=== PATIENT | female | born 1965 | race Caucasian/White ===

== ENCOUNTER → 2020-02-13 | Outpatient (CLI) | payer BC ==
--- NOTE | 2020-02-14 10:38 | ECHOF ---
Referral Reason:R01.1 Cardiac murmur, unspecified MEASUREMENTS -------- HEIGHT: 165.1 cm WEIGHT: 64.9 kg BP: IVSd: 1.0 cm (0.6 - 1.1) LVIDd: 4.3 cm (3.9 - 5.3) LVPWd: 1.0 cm (0.6 - 1.1) IVSs: 1.7 cm LVIDs: 2.4 cm LVPWs: 1.7 cm LAESV Index (A-L): 19.39 ml/m Ao Diam: 2.9 cm (2.0 - 3.7) AV Cusp: 1.9 cm (1.5 - 2.6) LA Diam: 2.8 cm (2.7 - 3.8) MV EXCURSION: 15.618 mm (> 18.000) MV EF SLOPE: 146 mm/s (70 - 150) EPSS: 2.1 cm MV E Logan: 0.74 m/s MV DecT: 266 ms MV A Logan: 0.76 m/s MV E/A Ratio: 0.98 RAP: 5.00 mmHg RVSP: 25.72 mmHg FINDINGS -------- Sinus rhythm. This was a technically good study. The left ventricular size is normal. There is mild concentric left ventricular hypertrophy. Overa ll left ventricular systolic function is normal with, an EF between 55 - 60 %. The diastolic fillin g pattern is normal for the age of the patient 7.42. The right ventricle is normal in size. Normal LA size by volume 22+/-6 ml/m2. The right atrial size is normal. The aortic valve is trileaflet, and appears structurally normal. No aortic stenosis or regurgitation. The mitral valve is normal. There is trace mitral regurgitation. The tricuspid valve appears structurally normal. Trace tricuspid regurgitation present. Right franchesca tricular systolic pressure is normal at < 35 mmHg. There is no pulmonic regurgitation present. The aortic root size is normal. Normal inferior vena cava with normal inspiratory collapse consistent with estimated right atrial pre ssure of 5 mmHg. There is no pericardial effusion. CONCLUSIONS -------- 1. Sinus rhythm. 2. The left ventricular size is normal. 3. There is mild concentric left ventricular hypertrophy. 4. Overall left ventricular systolic function is normal with, an EF between 55 - 60 %. 5. The diastolic filling pattern is normal for the age of the patient 7.42 6. Normal LA size by volume 22+/-6 ml/m2. 7. The aortic valve is trileaflet, and appears structurally normal. No aortic stenosis or regurgitati on. 8. There is trace mitral regurgitation. 9. Trace tricuspid regurgitation present. 10. Right ventricular systolic pressure is normal at < 35 mmHg. 11. There is no pulmonic regurgitation present. 12. Normal inferior vena cava with normal inspiratory collapse consistent with estimated right atrial pressure of 5 mmHg. 13. There is no pericardial effusion. ACIDIZER HELPER: Sameera Abdullahi RDCS
== END | disposition home or self-care (01) ==
LOC: RADECHMAIN 14:08
PROVIDERS: ATTEND Family Medicine
DX: I51.7 Cardiomegaly (principal)
CPT/HCPCS: 93306

== ENCOUNTER → 2020-07-21 | Outpatient (CLI) | payer BC ==
--- NOTE | 2020-07-22 07:29 | CT ---
EXAMINATION TYPE: CT abdomen w con DATE OF EXAM: 07/21/2020 HISTORY: LUQ pain and distention. CT DLP: 436.9mGycm Automated Exposure Control for Dose Reduction was Utilized. CONTRAST: CT scan of the abdomen is performed with oral and with IV Contrast, patient injected with 100 mL of I sovue 300. COMPARISON: None. FINDINGS: LUNG BASES: Mild left basilar linear scarring and/or atelectasis. LIVER/GB: Cholecystectomy clips. PANCREAS: No significant abnormality is seen. SPLEEN: No significant abnormality is seen. ADRENALS: No significant abnormality is seen. KIDNEYS: Subcentimeter low dense lesion medially upper pole left kidney series 5 image 22 too small t o further characterize. No hydronephrosis or concerning solid or cystic renal mass in either kidney. BOWEL: Oral contrast does not reach the third portion of duodenum making evaluation of wall suboptima l.. Mildly to moderately distended stomach with contrast and debris. No suspicious dilatation of the duodenal sweep. Incidental normal-appearing appendix from cecum in the right upper pelvis. No suspici ous small or large bowel dilatation. Somewhat redundant sigmoid colon. UTERUS/ADNEXA: Partial visualization of the anteverted uterine fundus LYMPH NODES: No greater than 1cm abdominal or pelvic lymph nodes are appreciated. OSSEOUS STRUCTURES: Levoconvex scoliosis centered at L2 level. Exaggerated lumbar lordosis on sagitta l images. Moderate to severe disc space narrowing with spurring right L1-L2 and L2-L3 levels. OTHER: Mild calcification of aorta and branch vessels. IMPRESSION: 1. Possible gastroparesis, correlate clinically. Consider nuclear medicine gastric emptying evaluatio n. Otherwise no acute finding identified.
== END | disposition home or self-care (01) ==
LOC: RADCTMAIN 17:20
PROVIDERS: ATTEND Family Medicine
DX: R10.12 Left upper quadrant pain (principal); Z91.048 Other nonmedicinal substance allergy status
CPT/HCPCS: 74160; Q9967

== ENCOUNTER → 2020-07-30 | Outpatient (CLI) | payer BC ==
--- NOTE | 2020-07-30 12:28 | NM ---
EXAMINATION TYPE: NM gastric emptying static DATE OF EXAM: 07/30/2020 COMPARISON: NONE HISTORY: Gastroparesis Following administration of 1.7 mCi Tc 99m Sulfur Colloid with 4 oz liquid eggs, 2 slices of toast, a nd ice water, projection images of the abdomen were obtained 10 minutes post ingestion. Patient Emptying Values 1 Hour 36 % 2 Hours 53 % 3 Hours 73 % 4 Hours 96 % Gastroesophageal reflux: None IMPRESSION: Gastric emptying: Normal. Gastroesophageal reflux: None. Gastric emptying normal percentage values: 30 minutes: <70% of retention (> 30% emptying) suggests abnormally fast emptying. 60 minutes: <90% retention (>10% emptying) is normal; less than 30% retention (>70% emptying) suggest s abnormally rapid emptying. 90 minutes: <65% retention (> 35% emptying) is normal. 120 minutes: <60% retention (> 40% emptying) is normal. 180 minutes: <30% retention (> 70% emptying) is normal. Gastric emptying T-1/2: Solid: The normal range is 60-105 minutes Liquid only: Normal range is 10-45 minutes. Liquid only-children: At 60 minutes, normal range is 44-58 % . Liquid only-infants: At 60 minutes, normal range is 32-64 %. Additional references: Gastric Emptying Scintigraphy [email or web address]://[email or web address]
== END | disposition home or self-care (01) ==
LOC: RADNMMAIN 06:29
PROVIDERS: ATTEND Family Medicine
DX: K31.84 Gastroparesis (principal)
CPT/HCPCS: 78264; A9541

== ENCOUNTER → 2021-09-08 | Outpatient (CLI) | payer BC ==
--- NOTE | 2021-09-09 11:19 | MM ---
Reason for exam: screening (asymptomatic). Last mammogram was performed 5 years and 11 months ago. History: Patient is postmenopausal. Took hormonal contraceptives for 2 years. Physical Findings: A clinical breast exam by your physician is recommended on an annual basis and results should be correlated with mammographic findings. MG Screening Mammo w CAD Bilateral CC and MLO view(s) were taken. Prior study comparison: October 15, 2015, mammogram, performed at [facility]. October 09, 2014, mammogram, performed at [facility]. The breast tissue is heterogeneously dense. This may lower the sensitivity of mammography. There are benign appearing round calcifications bilaterally. There is no discrete abnormality. ASSESSMENT: Benign, BI-RAD 2 RECOMMENDATION: Routine screening mammogram of both breasts in 1 year.
== END | disposition home or self-care (01) ==
LOC: RADMAMWWP 07:28
PROVIDERS: ATTEND Family Medicine
DX: Z12.39 Encounter for other screening for malignant neoplasm of breast (principal)
CPT/HCPCS: 77067

== ENCOUNTER → 2021-09-20 | Outpatient (CLI) | payer BC ==
[2021-09-20 14:49] LABS: Basophils # (A) 0.03 X 10*3/uL (0.00-0.10); Basophils % (A) 0.4 %; Eosinophils % (A) 4.1 %; HCT 40.9 % (37.2-46.3); HGB 13.3 g/dL (12.0-15.0); Lymphocytes # (A) 1.75 X 10*3/uL (0.90-5.00); Lymphocytes % (A) 23.7 %; MCH 29.5 pg (27.0-32.0); MCHC 32.5 g/dL (32.0-37.0); MCV 90.7 fL (80.0-97.0); Mean Platelet Volume 10.4 fL (9.5-12.2); Monocytes # (A) 0.55 X 10*3/uL (0.20-1.00); Monocytes % (A) 7.5 %; Neutrophils % (A) 63.8 %; Platelet Count 361 X 10*3/uL (140-440); RBC 4.51 X 10*6/uL (4.10-5.20); RDW 11.9 % (11.5-14.5); WBC 7.37 X 10*3/uL (4.50-10.00)
[2021-09-20 15:58] LABS: African American GFR (CKD) 111.5 (60.0-200.0); Albumin 4.3 g/dL (3.8-4.9); Albumin/Globulin Ratio 1.65 (1.60-3.17); Anion Gap 14.3 mmol/L (4.00-12.00); Blood Urea Nitrogen 15.4 mg/dL (9.0-27.0); Calcium 9.8 mg/dL (8.7-10.3); Carbon Dioxide 21.7 mmol/L (21.6-31.8); Chol/HDL Ratio 3.9 Ratio; Globulin 2.6 g/dL (1.6-3.3); HDL Cholesterol 44.9 mg/dL (40.00-60.00); LDL Cholesterol,Calculated 114.4 mg/dL (0.0-131.0); Non-African American GFR(CKD) 96.2 (60.0-200.0); Potassium 4.7 mmol/L (3.5-5.5); Total Bilirubin 0.4 mg/dL (0.30-1.20); Total Protein 6.9 g/dL (6.2-8.2); Triglycerides 78.5 mg/dL (0.00-149.00); VLDL Calculation 15.7 mg/dL (5.00-40.00)
== END | disposition home or self-care (01) ==
LOC: LABWHC1 07:08
PROVIDERS: ATTEND Family Medicine
DX: Z00.00 Encounter for general adult medical examination without abnormal findings (principal)
CPT/HCPCS: 36415; 80053; 80061; 85025

== ENCOUNTER → 2021-10-29 | Outpatient (CLI) | payer BC ==
[2021-10-29 17:31] LABS: Basophils # (A) 0.01 X 10*3/uL (0.00-0.10); Basophils % (A) 0.2 %; Eosinophils # (A) 0.13 X 10*3/uL (0.04-0.35); HCT 39.3 % (37.2-46.3); HGB 12.6 g/dL (12.0-15.0); Lymphocytes # (A) 1.81 X 10*3/uL (0.90-5.00); Lymphocytes % (A) 27.6 %; MCH 29.9 pg (27.0-32.0); MCHC 32.1 g/dL (32.0-37.0); MCV 93.1 fL (80.0-97.0); Mean Platelet Volume 10.7 fL (9.5-12.2); Monocytes % (A) 9.1 %; Neutrophils # (A) 3.98 X 10*3/uL (1.80-7.70); Neutrophils % (A) 60.6 %; Platelet Count 260 X 10*3/uL (140-440); RBC 4.22 X 10*6/uL (4.10-5.20); RDW 13.3 % (11.5-14.5); WBC 6.56 X 10*3/uL (4.50-10.00)
[2021-10-29 18:12] LABS: ALT 31 U/L (8-44); AST 20 U/L (13-35); African American GFR (CKD) 111.5 (60.0-200.0); Albumin 4.2 g/dL (3.8-4.9); Alkaline Phosphatase 77 U/L (41-126); BUN/Creat Ratio 15.29 Ratio (12.00-20.00); Blood Urea Nitrogen 10.7 mg/dL (9.0-27.0); Calcium 9.3 mg/dL (8.7-10.3); Carbon Dioxide 23.6 mmol/L (20.0-27.5); Chloride 106 mmol/L (96-109); Glucose 77 mg/dL (70-110); Non-African American GFR(CKD) 96.2 (60.0-200.0); Potassium 3.9 mmol/L (3.5-5.5); Sodium 142 mmol/L (135-145); Total Protein 6.2 g/dL (6.2-8.2)
[2021-11-01 05:27] LABS: Chol/HDL Ratio 3.88 Ratio; LDL Cholesterol,Calculated 135.2 mg/dL (0.0-131.0)
== END | disposition home or self-care (01) ==
LOC: LABWHC1 09:38
PROVIDERS: ATTEND Internal Medicine Rheumatology
DX: Z51.81 Encounter for therapeutic drug level monitoring (principal); M05.9 Rheumatoid arthritis with rheumatoid factor, unspecified
CPT/HCPCS: 36415; 80053; 80061; 84443; 85025

== ENCOUNTER → 2022-10-11 | Outpatient (CLI) | payer BC | END | disposition home or self-care (01) | LOC: LABWHC1 07:08 | PROVIDERS: ATTEND Family Medicine | DX: Z51.81 Encounter for therapeutic drug level monitoring (principal); M05.9 Rheumatoid arthritis with rheumatoid factor, unspecified | CPT/HCPCS: 36415; 86480 ==

== ENCOUNTER → 2023-06-11 | Outpatient (CLI) | payer BC ==
--- NOTE | 2023-06-11 08:16 | MM ---
Reason for Exam: Screening (asymptomatic). Last mammogram was performed 1 year(s) and 9 month(s) ago. Patient History: Menarche at age 10. First Full-Term at age 23. Postmenopausal. Patient used Hormonal Contraceptives for 2 years. Paternal aunt had breast cancer at or over age 50. Paternal aunt had breast cancer at or over age 50. Risk Values: Jen 5 year model risk: 1.4%. NCI Lifetime model risk: 7.4%. Prior Study Comparison: 10/09/2014 Screening Mammogram, [facility]. 10/15/2015 Screening Mammogram, [facility]. 09/08/2021 Bilateral Screening Mammogram, [facility]. Tissue Density: The breast tissue is heterogeneously dense. This may lower the sensitivity of mammography. Findings: Analyzed By CAD. There is no suspicious group of microcalcifications or new suspicious mass in either breast. Overall Assessment: Benign, BI-RAD 2 Management: Screening Mammogram of both breasts in 1 year. . Patient should continue monthly self-breast exams. A clinical breast exam by your physician is recommended on an annual basis. This exam should not preclude additional follow-up of suspicious palpable abnormalities. Note on Jen scores and lifetime risk: 1. A Jen score greater than 3% is considered moderate risk. If this is the case, consider specialist referral to assess eligibility for a risk reducing agent. 2. If overall lifetime risk for the development of breast cancer is 20% or higher, the patient may qualify for future screening with alternating mammogram and breast MRI. Electronically signed and approved by: Carlos Wills M.D. Radiologis
== END | disposition home or self-care (01) ==
LOC: RADMAMWWP 06:46
PROVIDERS: ATTEND Family Medicine
DX: Z12.31 Encounter for screening mammogram for malignant neoplasm of breast (principal); Z78.0 Asymptomatic menopausal state; Z80.3 Family history of malignant neoplasm of breast
CPT/HCPCS: 77067

== ENCOUNTER → 2024-10-08 | Outpatient (CLI) | payer BC ==
--- NOTE | 2024-10-12 22:18 | BD ---
EXAMINATION TYPE: Axial Bone Density DATE OF EXAM: 10/08/2024 CLINICAL HISTORY: 59 years old Female. ICD-10 CODE: Z78.0 ASYMPTOMATIC MENOPAUSAL STATE , Additional History: Height: 63.5 Weight: 150 FRAX RISK QUESTIONS: Family History (Parent hip fracture): no History of Fracture in Adulthood: no Secondary Osteoporosis: no Rheumatoid Arthritis: yes RISK FACTORS HISTORY OF: Surgery to Spine/Hip(right/left)/Wrist (right/left): no MEDICATIONS: Thyroid Medications: no Osteoporosis Medications: no EXAM MEASUREMENTS: Bone mineral densitometry was performed using the [employer] System. Bone mineral density as measured about the Lumbar spine is: ----- L1-L4(G/cm2): 1.020 T Score Values are as follows: ----- L1: -2.2 ----- L2: -0.1 ----- L3: -1.3 ----- L4: -1.8 ----- L1-L4: -1.3 Z Score Values are as follows: ----- L1: -1.1 ----- L2: 1.0 ----- L3: -0.1 ----- L4: -0.7 ----- L1-L4: -0.2 Bone mineral density baseline Bone mineral density about the R hip (g/cm2): 0.769 Bone mineral density about the L hip (g/cm2): 0.675 T Score values are as follows: -----R Neck: -2.3 -----L Neck: -3.0 -----R Total: -1.9 -----L Total: -2.6 Z Score values are as follows: -----R Neck: -1.1 -----L Neck: -1.8 -----R Total: -1.0 -----L Total: -1.8 Bone mineral density baseline FRAX%s: The graph provided illustrates a 14.5% chance for a major osteoporotic fx and a 3.9% chance f or the hips probability for fx in 10 years time. IMPRESSION: Osteoporosis (T Score less than -2.5). There is increased fracture risk and therapy is usually indicated based on age. Re-Screen 1-2 years. NOTE: T-SCORE=SD OF THE YOUNG ADULT MEAN. [facility], , 10/12/2024 10:16 PM
== END | disposition home or self-care (01) ==
LOC: RADBDWWP 16:25
PROVIDERS: ATTEND Family Medicine
DX: M81.0 Age-related osteoporosis without current pathological fracture (principal); Z78.0 Asymptomatic menopausal state
CPT/HCPCS: 77080

== ENCOUNTER → 2024-10-15 | Outpatient (CLI) | payer BC ==
--- NOTE | 2024-10-15 09:52 | MM ---
Reason for Exam: Screening (asymptomatic). Last mammogram was performed 1 year(s) and 4 month(s) ago. Patient History: Menarche at age 10. First Full-Term at age 23. Postmenopausal. Patient used Hormonal Contraceptives for 2 years. Paternal aunt had breast cancer at or over age 50. Paternal aunt had breast cancer at or over age 50. Risk Values: Jen 5 year model risk: 1.4%. NCI Lifetime model risk: 7.2%. Prior Study Comparison: 10/15/2015 Screening Mammogram, [facility]. 09/08/2021 Bilateral Screening Mammogram, [facility]. 06/11/2023 Bilateral MG screening mammo w CAD, [facility]. Tissue Density: The breasts are heterogeneously dense, which may obscure small masses. Findings: Analyzed By CAD. There is no suspicious group of microcalcifications or new suspicious mass in either breast. Overall Assessment: Benign, BI-RAD 2 Management: Screening Mammogram of both breasts in 1 year. . Patient should continue monthly self-breast exams. A clinical breast exam by your physician is recommended on an annual basis. This exam should not preclude additional follow-up of suspicious palpable abnormalities. Note on Jen scores and lifetime risk: 1. A Jen score greater than 3% is considered moderate risk. If this is the case, consider specialist referral to assess eligibility for a risk reducing agent. 2. If overall lifetime risk for the development of breast cancer is 20% or higher, the patient may qualify for future screening with alternating mammogram and breast MRI. [facility], , 10/15/2024 9:49 AM. Electronically signed and approved by: Carlos Wills M.D. Radiologis
== END | disposition home or self-care (01) ==
LOC: RADMAMWWP 07:00
PROVIDERS: ATTEND Family Medicine
DX: Z12.31 Encounter for screening mammogram for malignant neoplasm of breast (principal); Z78.0 Asymptomatic menopausal state; Z80.3 Family history of malignant neoplasm of breast; R92.333 Mammographic heterogeneous density, bilateral breasts
CPT/HCPCS: 77063; 77067

== ENCOUNTER → 2025-01-20 | Outpatient (CLI) | payer BC ==
[2025-01-20 12:49] LABS: ALT 26 U/L (8-44); AST 22 U/L (13-35); Albumin 4.4 g/dL (3.8-4.9); Albumin/Globulin Ratio 1.63 Ratio (1.60-3.17); Alkaline Phosphatase 71 U/L (41-126); BUN/Creat Ratio 24.12 Ratio (12.00-20.00); Blood Urea Nitrogen 19.3 mg/dL (9.0-27.0); Calcium 9.7 mg/dL (8.7-10.3); Carbon Dioxide 26.7 mmol/L (21.6-31.8); Chloride 105 mmol/L (96-109); Globulin 2.7 g/dL (1.6-3.3); Glucose 90 mg/dL (70-110); Sodium 141 mmol/L (135-145); Total Bilirubin 0.4 mg/dL (0.3-1.2); Total Protein 7.1 g/dL (6.2-8.2)
[2025-01-20 14:11] LABS: Basophils # (A) 0.03 X 10*3/uL (0.00-0.10); Basophils % (A) 0.4 %; Eosinophils # (A) 0.13 X 10*3/uL (0.04-0.35); Eosinophils % (A) 1.9 %; HCT 42.1 % (37.2-46.3); HGB 14.1 g/dL (12.0-15.0); Lymphocytes # (A) 3.03 X 10*3/uL (0.90-5.00); Lymphocytes % (A) 45.2 %; MCH 31.3 pg (27.0-32.0); MCHC 33.5 g/dL (32.0-37.0); MCV 93.3 FL (80.0-97.0); Mean Platelet Volume 10.3 FL (9.5-12.2); Monocytes # (A) 0.47 X 10*3/uL (0.20-1.00); NRBC Per 100 WBC 0 X 10*3/uL (0.00-0.01); Neutrophils # (A) 3.01 X 10*3/uL (1.80-7.70); Neutrophils % (A) 44.9 %; Platelet Count 274 X 10*3/uL (140-440); RBC 4.51 X 10*6/uL (4.10-5.20); RDW 13.9 % (11.5-14.5); WBC 6.71 X 10*3/uL (4.50-10.00)
[2025-01-20 14:44] LABS: Erythrocyte Sedimentation Rate 7 mm/Hr (0-30)
== END | disposition home or self-care (01) ==
LOC: LABWHC1 06:56
PROVIDERS: ATTEND Internal Medicine Rheumatology
DX: M05.9 Rheumatoid arthritis with rheumatoid factor, unspecified (principal); Z51.81 Encounter for therapeutic drug level monitoring
CPT/HCPCS: 36415; 80053; 85025; 85652; 86480

== ENCOUNTER → 2025-06-10 | Outpatient (CLI) | payer BC ==
[2025-06-10 10:45] LABS: Basophils # (A) 0.02 X 10*3/uL (0.00-0.10); Basophils % (A) 0.5 %; Eosinophils # (A) 0.25 X 10*3/uL (0.04-0.35); Eosinophils % (A) 6.5 %; HCT 41.6 % (37.2-46.3); HGB 13.9 g/dL (12.0-15.0); Immature Grans, Automated 0.30 %; Lymphocytes # (A) 1.78 X 10*3/uL (0.90-5.00); Lymphocytes % (A) 46.1 %; MCH 32.2 pg (27.0-32.0); MCHC 33.4 g/dL (32.0-37.0); MCV 96.3 FL (80.0-97.0); Monocytes # (A) 0.36 X 10*3/uL (0.20-1.00); Monocytes % (A) 9.3 %; NRBC Per 100 WBC 0 X 10*3/uL (0.00-0.01); Neutrophils # (A) 1.44 X 10*3/uL (1.80-7.70); Neutrophils % (A) 37.3 %; Platelet Count 212 X 10*3/uL (140-440); RBC 4.32 X 10*6/uL (4.10-5.20); RDW 12.9 % (11.5-14.5); WBC 3.86 X 10*3/uL (4.50-10.00)
[2025-06-10 11:17] LABS: ALT 35 U/L (8-44); AST 29 U/L (13-35); Albumin 4.3 g/dL (3.8-4.9); Albumin/Globulin Ratio 2.26 Ratio (1.60-3.17); Alkaline Phosphatase 56 U/L (41-126); Anion Gap 10.40 mmol/L (4.00-12.00); BUN/Creat Ratio 23.29 Ratio (12.00-20.00); Blood Urea Nitrogen 16.3 mg/dL (9.0-27.0); Calcium 9.5 mg/dL (8.7-10.3); Carbon Dioxide 24.6 mmol/L (21.6-31.8); Chloride 110 mmol/L (96-109); Ferritin 280.0 ng/mL (10.0-291.0); Globulin 1.9 g/dL (1.6-3.3); Glucose 92 mg/dL (70-110); Iron 222 UG/DL (50-170); Potassium 3.9 mmol/L (3.5-5.5); Sodium 145 mmol/L (135-145); Total Iron Binding Capacity 330 UG/DL (228-460); Total Protein 6.2 g/dL (6.2-8.2)
== END | disposition home or self-care (01) ==
LOC: LABWHC1 06:56
PROVIDERS: ATTEND Internal Medicine Rheumatology
DX: Z51.81 Encounter for therapeutic drug level monitoring (principal); M05.9 Rheumatoid arthritis with rheumatoid factor, unspecified
CPT/HCPCS: 36415; 80053; 82728; 83540; 83550; 84466; 85025; 85652; 86140

== ENCOUNTER → 2025-06-24 | Outpatient (CLI) | payer BC | END | disposition home or self-care (01) | LOC: LABWHC1 06:59 | PROVIDERS: ATTEND Family Medicine | DX: M05.9 Rheumatoid arthritis with rheumatoid factor, unspecified (principal); R79.0 Abnormal level of blood mineral | CPT/HCPCS: 36415; 81256 ==